=== PATIENT | female | born 1955 | race Hispanic/Latino ===

== ENCOUNTER → 2017-10-10 | Outpatient (CLI) | payer OTHER ==
--- NOTE | 2017-10-10 10:44 | Diagnostic Imaging Report ---
PROCEDURE:LIMITED ABDOMINAL ULTRASOUND COMPARISON:CT abdomen and pelvis 10/14/2009. INDICATIONS:Fatty Liver FINDINGS: Liver: 14.9 cm. Increased hepatic parenchymal echogenicity. No focal mass. Main portal vein: 1.1 cm. Hepatopedal flow. Gallbladder: No echogenic calculi, gallbladder wall thickening, or pericholecystic fluid. Common Bile Duct: 5.0 mm. No echogenic filling defect. Sonographic Golden's sign: Negative. Right kidney: 10.3 cm. No solid or cystic mass, echogenic calculi, or hydronephrosis. Normal parenchymal echogenicity. The pancreas and inferior vena cava were insufficiently visualized for comment secondary to overlying bowel gas and increased body habitus. Aorta: Normal. Ascites: None. CONCLUSION: 1. No acute sonographic abnormality. 2. Hepatic steatosis. Dictated by: Peter Reddy M.D. on 10/10/2017 at 10:45 Electronically approved by: Peter Reddy M.D. on 10/10/2017 at 10:45
== END ==
LOC: US 08:43
PROVIDERS: ATTEND Family Medicine
DX: K76.0 Fatty (change of) liver, not elsewhere classified (principal)
CPT/HCPCS: 76705